=== PATIENT | male | born 1960 | race Caucasian/White ===

== ENCOUNTER 2017-02-12 06:55 | Inpatient (IN) | payer OTHER ==
[~2017-02-12] VITALS: Ht 182.9 cm; Wt 129.4 kg
[~2017-02-12 06:55] MED LIST: ASCO500T29 PO; CHOL5000 PO; CYAN50008 PO; EPINEPHRINE 1 MG/ML, 1ML ONE; EZET10TA3 PO; HYDR12.58 PO; IRBE300T16 PO; KETOROLAC 60 MG/2 ML ONE; LICO1POW PO; MAGN400T36 PO; NEOSPORIN OINT, 15GM ONE; OLIV250C PO; OMEG-137 PO; PAPA1TAB8 PO; PHYT100T PO; ROPIvacaine/PF 0.2%, 20 ML ONE; ROSU20TA PO; SLIPPERY ELM PO; SODIUM CHLORIDE 0.9% 50 ML ONE; TRAM50TA2 PO; TRANEXAMIC ACID 100 MG/ML, 10ML ONE; TURM500C7 PO; VALE500C PO; morphine SULFATE/PF 1 MG/ML, 10ML ONE
[2017-02-12] MEDS ORDERED: VANCOMYCIN PER PHARMACY MC STA (07:04)
[2017-02-12] MEDS ORDERED: LACTATED RINGERS 1,000 ML IV SCH (07:11)
[2017-02-12] MEDS ORDERED: VANCOMYCIN 2,000 MG in SODIUM CHLORIDE 0.9% 500 ML IV ONE (07:30)
[2017-02-12] MEDS ORDERED: KETAMINE 10 MG/ML, 20ML ONE (09:28)
[2017-02-12] MEDS ORDERED: CEFAZOLIN 1,000 MG ONE (09:37)
[2017-02-12] MEDS ORDERED: DEXAMETHASONE 4 MG/ML, 1ML ONE (09:37)
[2017-02-12] MEDS ORDERED: EPHEDRINE 50 MG/ML, 1ML ONE (09:37)
[2017-02-12] MEDS ORDERED: SUCCINYLCHOLINE 20 MG/ML, 10ML ONE (09:37)
[2017-02-12] MEDS ORDERED: ROCURONIUM 10 MG/ML ONE (09:37)
[2017-02-12] MEDS ORDERED: NEOSTIGMINE 1 MG/ML, 10ML ONE (09:37)
[2017-02-12] MEDS ORDERED: PROPOFOL 10 MG/ML, 20ML ONE (09:37)
[2017-02-12] MEDS ORDERED: GLYCOPYRROLATE 0.2MG/1ML ONE (09:37)
[2017-02-12] MEDS ORDERED: ONDANSETRON 2MG/ML, 2ML ONE ×2 (09:37→12:11)
[2017-02-12] MEDS ORDERED: FENTANYL PF 100 MCG/2ML ONE (11:18)
[2017-02-12] MEDS ORDERED: OXYcodone 5 MG/5 ML ORAL.SOL UDC ONE (11:18)
[2017-02-12] MEDS: FENTANYL PF 100 MCG/2ML IV PRN ×2 (11:20→11:33)
[2017-02-12] MEDS ORDERED: ACETAMINOPHEN 325 MG TABLET PO PRN ×2 (11:30→13:30)
[2017-02-12] MEDS ORDERED: hydrALAzine 20 MG/ML, 1ML IV PRN (11:30)
[2017-02-12] MEDS ORDERED: PROMETHAZINE 25 MG/ML, 1ML IV PRN (11:30)
[2017-02-12] MEDS ORDERED: MEPERIDINE/PF 25MG/0.5ML IVPush PRN (11:30)
[2017-02-12] MEDS ORDERED: METOCLOPRAMIDE 5 MG/ML, 2ML IV PRN (11:30)
[2017-02-12] MEDS ORDERED: OXYcodone 5 MG/5 ML ORAL.SOL UDC PO PRN (11:30)
[2017-02-12] MEDS ORDERED: LABETALOL 5MG/ML, 20ML IV PRN (11:30)
[2017-02-12] MEDS ORDERED: MIDAZOLAM 1 MG/ML, 2ML IV PRN (11:30)
[2017-02-12] MEDS ORDERED: ONDANSETRON 2MG/ML, 2ML IVPush PRN ×2 (11:30→13:00)
[2017-02-12] MEDS ORDERED: HYDROmorphone 2 MG/ML, 1ML ONE (11:38)
[2017-02-12] MEDS: HYDROmorphone 1 MG/ML, 1ML IV PRN ×3 (11:43→12:12)
[2017-02-12] MEDS ORDERED: BISACODYL 10 MG SUPP PR PRN (13:00)
[2017-02-12] MEDS ORDERED: ALUMINUM/MAG/SIMETHICONE 30 ML UDC PO PRN (13:00)
[2017-02-12] MEDS ORDERED: LORazepam 2 MG/ML, 1ML IV PRN (13:00)
[2017-02-12] MEDS ORDERED: morphine SULFATE 10 MG/ML, 1ML IV PRN (13:00)
[2017-02-12] MEDS ORDERED: DIPHENHYDRAMINE 25 MG CAPSULE PO PRN (13:00)
[2017-02-12] MEDS ORDERED: MAGNESIUM HYDROXIDE 8%, 30ML UDC PO PRN (13:00)
[2017-02-12] MEDS ORDERED: ZOLPIDEM 5MG TABLET PO PRN (13:00)
[2017-02-12] MEDS ORDERED: LORazepam 1MG TABLET PO PRN (13:00)
[2017-02-12] MEDS ORDERED: HYDROcodone/APAP 7.5-325MG/15ML UDC PO PRN (13:30)
[2017-02-12] MEDS ORDERED: SENNA/DOCUSATE TABLET PO PRN (13:30)
[2017-02-12] MEDS ORDERED: DIAZEPAM 5 MG TABLET PO PRN (13:30)
[2017-02-12] MEDS ORDERED: SCOPOLAMINE PATCH, 1.5MG PATCH.TD72 TD PRN (14:30)
[2017-02-12] MEDS: POTASSIUM CHLORIDE 10 MEQ in D5%-0.45% NACL 1,000 ML IV SCH (15:49)
[2017-02-12] MEDS: OXYcodone 5 MG/5 ML ORAL.SOL UDC PO PRN ×2 (16:08→22:04)
[2017-02-12] MEDS: CEFAZOLIN PMX 1GM/50ML 50 ML IVPB SCH (17:42)
[2017-02-12 19:51] VITALS: BP 105/65
[2017-02-12] MEDS: DOCUSATE 100 MG CAPSULE PO SCH (20:42)
[2017-02-12] MEDS: ATORVASTATIN 40 MG TABLET PO SCH (20:43)
[2017-02-12] MEDS: IRBESARTAN 300 MG TABLET PO SCH (20:43)
[2017-02-12] MEDS: EZETIMIBE 10 MG TABLET PO SCH (20:43)
[2017-02-12] MEDS ORDERED: VANCOMYCIN PMX 1GM/200ML 200 ML IVPB ONE (21:00)
[2017-02-12 23:43] VITALS: BP 98/56
[2017-02-13] MEDS: CEFAZOLIN PMX 1GM/50ML 50 ML IVPB SCH (01:29)
[2017-02-13 04:04] VITALS: BP 96/57
[2017-02-13] MEDS: ENOXAPARIN 30 MG/0.3 ML SQ SCH ×2 (06:07→17:55)
[2017-02-13 07:43] VITALS: BP 100/63
[2017-02-13] MEDS: DOCUSATE 100 MG CAPSULE PO SCH ×2 (09:01→21:46)
[2017-02-13] MEDS: MULTIVITAMINS/MINERALS TABLET PO SCH (09:05)
[2017-02-13] MEDS: HYDROCHLOROTHIAZIDE 12.5 MG CAPSULE PO SCH (09:05)
[2017-02-13] MEDS: OXYcodone 5 MG/5 ML ORAL.SOL UDC PO PRN ×3 (09:05→23:48)
[2017-02-13] MEDS: POTASSIUM CHLORIDE 10 MEQ in D5%-0.45% NACL 1,000 ML IV SCH (09:36)
[2017-02-13 13:03] VITALS: BP 93/59
[2017-02-13 19:50] VITALS: BP 105/65
[2017-02-13] MEDS: EZETIMIBE 10 MG TABLET PO SCH (21:46)
[2017-02-13] MEDS: IRBESARTAN 300 MG TABLET PO SCH (21:46)
[2017-02-13] MEDS: ATORVASTATIN 40 MG TABLET PO SCH (21:47)
[2017-02-14 02:11] VITALS: BP 109/68
[2017-02-14] MEDS: ENOXAPARIN 30 MG/0.3 ML SQ SCH (05:09)
[2017-02-14] MEDS: OXYcodone 5 MG/5 ML ORAL.SOL UDC PO PRN ×3 (05:15→13:55)
[2017-02-14] MEDS: POTASSIUM CHLORIDE 10 MEQ in D5%-0.45% NACL 1,000 ML IV SCH (05:42)
[2017-02-14 07:50] VITALS: BP 110/75
[2017-02-14] MEDS: HYDROCHLOROTHIAZIDE 12.5 MG CAPSULE PO SCH (09:24)
[2017-02-14] MEDS: MULTIVITAMINS/MINERALS TABLET PO SCH (09:24)
[2017-02-14] MEDS: DOCUSATE 100 MG CAPSULE PO SCH (09:24)
[2017-02-14 14:25] VITALS: BP 107/65
[2017-02-14] MEDS ORDERED: ASPI-650 PO (16:18)
[2017-02-14] MEDS ORDERED: OXYC-229 PO (16:19)
[2017-02-14] MEDS ORDERED: DIAZ10TA PO (16:20)
== END 2017-02-14 16:38 | disposition home or self-care (01) | DRG 470 ==
LOC: ORIP 06:55 → 4NOR 12:42 → DCLOUNGE 02-14 15:50
PROVIDERS: ADMIT Orthopaedic Surgery; ATTEND Orthopaedic Surgery
PROC: 0SR902A Replacement of Right Hip Joint with Metal on Polyethylene Synthetic Substitute, Uncemented, Open Approach (ICD-10-PCS; principal; 2017-02-12 09:30)
DX: M16.11 Unilateral primary osteoarthritis, right hip (principal)
CPT/HCPCS: 36415; 86850; 86900; C1713; J0171; J0690; J1100; J1170; J1650; J1885; J2250; J2274; J2405; J2704; J2710; J2795; J3010; J3370; J3480; J3490; C1776; J0330; J7040; J7120

== ENCOUNTER → 2018-10-30 | Outpatient (CLI) | payer OTHER ==
[~2018-10-30] MED LIST changes: +ASCO-90 PO; -ASCO500T29 PO; +ASPI-650 PO; +DIAZ10TA PO; -EPINEPHRINE 1 MG/ML, 1ML ONE; +EZET10TA18 PO; -EZET10TA3 PO; -HYDR12.58 PO; +HYDROCHLOROTH12.5 MG PO; -KETOROLAC 60 MG/2 ML ONE; -NEOSPORIN OINT, 15GM ONE; +OXYC-307 PO; -ROPIvacaine/PF 0.2%, 20 ML ONE; -SODIUM CHLORIDE 0.9% 50 ML ONE; -TRANEXAMIC ACID 100 MG/ML, 10ML ONE; -morphine SULFATE/PF 1 MG/ML, 10ML ONE
== END | disposition home or self-care (01) ==
LOC: CFH 08:13
PROVIDERS: ATTEND Family Medicine
DX: E78.2 Mixed hyperlipidemia (principal)
CPT/HCPCS: 75571

== ENCOUNTER → 2018-12-10 | Outpatient (CLI) | payer OTHER | END | disposition home or self-care (01) | LOC: CARD 09:10 | PROVIDERS: ATTEND Family Medicine | DX: I25.10 Atherosclerotic heart disease of native coronary artery without angina pectoris (principal); I10 Essential (primary) hypertension; R73.03 Prediabetes; E78.2 Mixed hyperlipidemia; E66.01 Morbid (severe) obesity due to excess calories | CPT/HCPCS: 93017; 93350 ==